=== PATIENT | female | born 1970 | race African-American/Black ===

== ENCOUNTER → 2019-08-22 | Outpatient (CLI) | payer OTHER ==
[2019-08-22 08:31] LABS: MEAN CORPUSCULAR HEMOGLOBIN 29.7 pg (27.0-34.8); MEAN CORPUSCULAR HGB CONC 32.5 g/dL (32.4-35.8); MEAN CORPUSCULAR VOLUME 91.5 fL (80-100); MEAN PLATELET VOLUME 8.2 fL (7.4-10.4); PLATELET COUNT 231 x10^3/uL (130-400); RED BLOOD COUNT 4.39 x10^6/uL (3.82-5.3); RED CELL DISTRIBUTION WIDTH 15.5 % (9.6-15.2)
[2019-08-22 08:40] LABS: ALANINE AMINOTRANSFERASE 41 U/L (12-78); ALBUMIN 3.5 g/dL (3.4-5.0); ANION GAP 3 mmol/L (5-15); CALCIUM 8.5 mg/dL (8.5-10.1); CHLORIDE 110 mmol/L (98-107); CHOLESTEROL, TOTAL 166 mg/dL (140-239); CREATININE 0.82 mg/dL (0.55-1.02)
[2019-08-22 08:42] LABS: ALKALINE PHOSPHATASE 37 U/L (45-117); BILIRUBIN,TOTAL 0.4 mg/dL (0.2-1.0); CHOL/HDL RATIO 3.1; HDL CHOL % 33 % (28-40); HDL CHOLESTEROL (DIRECT) 54 mg/dL (40-60); LDL CHOLESTEROL,CALCULATED 104 mg/dL (54-169); LDL/HDL RATIO 1.9 (0.5-3.0); TOTAL PROTEIN 7.3 g/dL (6.4-8.2); TRIGLYCERIDES 39 mg/dL (50-200); VLDL CHOLESTEROL 8 mg/dL (0-25)
[2019-08-22 08:51] LABS: MD YES
[2019-08-22 08:54] LABS: <PLATELET ESTIMATE> ADEQUATE; <PLT MORPHOLOGY> NORMAL PLT MORPH; <RBC MORPHOLOGY> NORMAL; BAND#(MANUAL) 0.05 x10^3/uL; BANDS%(MANUAL) 1 % (0-7); EOS#(MANUAL) 0.05 x10^3/uL (0.0-0.4); EOS% (MANUAL) 1 % (1-7); LYMPH#(MANUAL) 1.53 x10^3/uL (1-3.4); LYMPHS% (MANUAL) 30 % (22-44); MONOS#(MANUAL) 0.15 x10^3/uL (0.3-2.7); MONOS% (MANUAL) 3 % (2-9); SEG#(MANUAL) 3.32 x10^3/uL (1.8-6.8); SEGS% (MANUAL) 65 % (42-75)
== END | disposition home or self-care (01) ==
LOC: LAB 08:15
PROVIDERS: ATTEND Family Medicine
DX: Z13.1 Encounter for screening for diabetes mellitus (principal); Z13.220 Encounter for screening for lipoid disorders; Z79.899 Other long term (current) drug therapy
CPT/HCPCS: 36415; 80053; 80061; 83036; 85025

== ENCOUNTER → 2019-12-10 | Outpatient (CLI) | payer OTHER | END | disposition home or self-care (01) | LOC: CFH 12:43 | PROVIDERS: ATTEND Family Medicine | DX: Z12.31 Encounter for screening mammogram for malignant neoplasm of breast (principal); S91.121A Laceration with foreign body of right great toe without damage to nail, initial encounter; M19.071 Primary osteoarthritis, right ankle and foot; M20.11 Hallux valgus (acquired), right foot; X58.XXXA Exposure to other specified factors, initial encounter; Y93.89 Activity, other specified; Y92.89 Other specified places as the place of occurrence of the external cause; Y99.8 Other external cause status | CPT/HCPCS: 77067 ==

== ENCOUNTER 2020-07-02 18:44 | Emergency (ER) | payer OTHER ==
[~2020-07-02] VITALS: Ht 177.8 cm; Wt 123.8 kg
--- NOTE | 2020-07-02 19:22 | NUR ---
NA FOR TRIAGE X 1
[2020-07-02] MEDS ORDERED: METHOCARBAMOL 750 MG TABLET ONE (21:25)
[2020-07-02] MEDS ORDERED: KETOROLAC 30 MG/1 ML ONE (21:26)
[2020-07-02] MEDS ORDERED: KETOROLAC 30 MG/1 ML IM ONE (21:30)
[2020-07-02] MEDS ORDERED: METHOCARBAMOL 750 MG TABLET PO ONE (21:30)
[2020-07-02 21:34] VITALS: BP 150/96
--- NOTE | 2020-07-02 21:59 | NUR ---
DC EDUCATION PROVIDED, PT DEMONSTRATES UNDERSTANDING. PT AMBULATED STEADILY TO DC WITH RN. PROVIDED [employer]AX[employer] VOUCHER FOR SAFE TRANSPORT HOME.
== END 2020-07-02 22:01 | disposition home or self-care (01) ==
LOC: ED 21:40
DX: M54.42 Lumbago with sciatica, left side (principal)
CPT/HCPCS: 96372; 99283; J1885; J7512